=== PATIENT | male | born 1965 | race Caucasian/White ===

== ENCOUNTER 2016-08-18 05:29 | Day surgery (SDC) | payer MEDICAID ==
[~2016-08-18] VITALS: Ht 175.3 cm; Wt 73.9 kg
[~2016-08-18 05:29] MED LIST: ADDERALL 10 MG10 MG PO; CLARITIN 10 MG10 MG PO; HYDROCODONE-APA1 TAB PO; IBUPROFEN800 MG PO; NORCO 7.5/325 T1 TA1 PO; PROVENTIL HFA6.7 GM INH
[2016-08-18 07:52] VITALS: BP 112/74; Ht 175.3 cm; Wt 73.9 kg
[2016-08-18] MEDS ORDERED: HYDROCODONE-APA1 TAB PO (10:09)
--- NOTE | 2016-08-18 14:34 | NUR ---
1100 IV DC WITH CATHER TIP INTACT
--- NOTE | 2016-08-22 14:52 | OP ---
PATIENT NAME: SUBHA RIOS MEDICAL RECORD: [id number] :63 LOCATION:[facility] ADMISSION DATE: SURGEON: MARY BRENNAN MD DATE OF OPERATION: 08/18/2016 PREOPERATIVE DIAGNOSIS: Medial meniscus tear of the right knee. POSTOPERATIVE DIAGNOSIS: Medial meniscus tear of the right knee. PROCEDURE: Arthroscopic partial medial meniscectomy. SURGEON: Mary Brennan MD ANESTHESIA: General. INTRAOPERATIVE COMPLICATIONS: None. 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 OPERATIVE SUMMARY IN DETAIL: After obtaining the appropriate preoperative orthopedic surgery consents as well as anesthetic consultation, evaluation and clearance, the patient was brought to the operating room and placed on the operating table in supine position. After adequate general laryngeal mask was administered, tourniquet was placed about the proximal aspect of the right lower extremity. Right lower extremity was then prepped and draped in a routine sterile fashion. The leg was elevated and exsanguinated, tourniquet inflated to 350 mmHg. Routine inferolateral portal was established followed by a superomedial portal and inferomedial portal. Diagnostic arthroscopy showed the patient had complex tear of the posterior horn of the medial meniscus. A combination of arthroscopic ami as well as a meniscotome was utilized to debride the posterior horn of the medial meniscus back to stable meniscal elements. Having completed this, the lateral side of the patellofemoral joint were in excellent condition. Knee was insufflated with 30 cc of 0.25% Marcaine with epinephrine and 40 mg of Depo-Medrol. Arthroscopy portals were closed in routine interrupted fashion using 4-0 Prolene. Sterile dressings were applied. The patient was awakened and taken to the recovery room in stable condition. All final needle and sponge counts were correct. TRANSINT:[id number] Voice Confirmation ID: [id number] DOCUMENT ID: [id number] MARY BRENNAN MD at 1452 CC: [id number] DICTATION DATE: 08/18/16 1011 ENVELOPE FOLD OPERATOR: 08/18/16 1039 DEP [facility] 08/18/16 [place] [id number] [place], [place] [id number]
== END 2016-08-18 11:40 | disposition home or self-care (01) ==
LOC: D.OPS 05:29 → D.PAN 08:30 → D.OPS 09:30 → D.PAN 10:15 → D.OPS 10:15
DX: S83.231A Complex tear of medial meniscus, current injury, right knee, initial encounter (principal)

== ENCOUNTER 2016-09-19 02:55 | Emergency (ER) | payer MEDICAID ==
[2016-08-18 07:52] VITALS: BMI 24.1
== END 2016-09-19 05:58 | disposition home or self-care (01) ==
LOC: D.ER 02:55
DX: H10.31 Unspecified acute conjunctivitis, right eye (principal); F17.200 Nicotine dependence, unspecified, uncomplicated

== ENCOUNTER 2016-11-04 00:44 | Emergency (ER) | payer MEDICAID ==
[2016-08-18 07:52] VITALS: BMI 24.1
== END 2016-11-04 01:20 | disposition home or self-care (01) ==
LOC: D.ER 00:44
DX: S05.02XA Injury of conjunctiva and corneal abrasion without foreign body, left eye, initial encounter (principal); X58.XXXA Exposure to other specified factors, initial encounter; Y93.89 Activity, other specified; Y92.019 Unspecified place in single-family (private) house as the place of occurrence of the external cause

== ENCOUNTER 2016-11-05 10:38 | Emergency (ER) | payer MEDICAID ==
[2016-08-18 07:52] VITALS: BMI 24.1
== END 2016-11-05 15:44 | disposition home or self-care (01) ==
LOC: D.ER 10:38
DX: S05.01XA Injury of conjunctiva and corneal abrasion without foreign body, right eye, initial encounter (principal); X58.XXXA Exposure to other specified factors, initial encounter; Y93.89 Activity, other specified; Y92.89 Other specified places as the place of occurrence of the external cause; F17.200 Nicotine dependence, unspecified, uncomplicated

== ENCOUNTER 2016-11-27 17:56 | Emergency (ER) | payer MEDICAID ==
[2016-08-18 07:52] VITALS: BMI 24.1
== END 2016-11-27 19:50 | disposition home or self-care (01) ==
LOC: D.ER 17:56
DX: R07.89 Other chest pain (principal); S20.211A Contusion of right front wall of thorax, initial encounter; W22.8XXA Striking against or struck by other objects, initial encounter; Y93.89 Activity, other specified; Y92.019 Unspecified place in single-family (private) house as the place of occurrence of the external cause

== ENCOUNTER 2017-08-23 19:03 | Emergency (ER) | payer MEDICAID ==
[2016-08-18 07:52] VITALS: BMI 24.1
== END 2017-08-24 01:12 | disposition home or self-care (01) ==
LOC: D.ER 19:03
DX: S42.401A Unspecified fracture of lower end of right humerus, initial encounter for closed fracture (principal); W22.8XXA Striking against or struck by other objects, initial encounter; Y93.89 Activity, other specified; Y92.89 Other specified places as the place of occurrence of the external cause; M25.421 Effusion, right elbow; F17.200 Nicotine dependence, unspecified, uncomplicated

== ENCOUNTER 2018-05-03 21:05 | Emergency (ER) | payer MEDICAID ==
[~2018-05-03] VITALS: Ht 175.3 cm; Wt 68.2 kg
[2018-05-03 21:09] VITALS: Ht 175.3 cm; Wt 68.2 kg
[2018-05-03] MEDS ORDERED: CLEOCIN HCL300 MG PO (23:14)
[2018-05-03 23:17] VITALS: BP 127/77
== END 2018-05-03 23:17 | disposition home or self-care (01) ==
LOC: D.ER 21:05
DX: L03.115 Cellulitis of right lower limb (principal); F17.200 Nicotine dependence, unspecified, uncomplicated

== ENCOUNTER 2018-08-26 00:22 | Emergency (ER) | payer MEDICAID ==
[~2018-08-26] VITALS: Ht 175.3 cm; Wt 74.5 kg
[~2018-08-26 00:22] MED LIST changes: +CLEOCIN HCL300 MG PO
[2018-08-26 00:28] VITALS: Ht 175.3 cm; Wt 74.5 kg
[2018-08-26] MEDS ORDERED: CYCLOBENZAPRINE10 MG PO (01:41)
[2018-08-26 01:51] LABS: BASOPHILS 0.2 % (0-2); EOSINOPHILS 1.9 % (0-7); HEMATOCRIT 40.7 % (42.0-54.0); IMMATURE GRANULOCYTES 0.1 % (0-5); LYMPHOCYTES 42.8 % (15-50); MCH 34.5 pg (26.0-34.0); MCHC 34.4 g/dL (31.0-37.0); MCV 100.2 fL (80.0-100.0); MEAN PLATELET VOLUME 9.4 fL (7.4-10.4); MONOCYTES 6.8 % (2-11); NEUTROPHILS 48.2 % (40-80); RBC 4.06 10x6/uL (4.20-6.10); WBC 8.2 10x3/uL (4.8-10.8)
[2018-08-26 02:16] LABS: PLATELET COUNT 240 10x3/uL (130-400)
[2018-08-26 02:23] LABS: APPEARANCE CLEAR (CLEAR); BILIRUBIN NEGATIVE (NEGATIVE); COLOR YELLOW (YELLOW); GLUCOSE NEGATIVE (NEGATIVE); KETONE NEGATIVE (NEGATIVE); NITRITE NEGATIVE (NEGATIVE); PROTEIN NEGATIVE (NEGATIVE); UROBILINOGEN NORMAL (NORMAL)
[2018-08-26 02:32] LABS: UDS - AMPHET POSITIVE QUAL (NEGATIVE); UDS - BARB NEGATIVE QUAL (NEGATIVE); UDS - BENZO NEGATIVE QUAL (NEGATIVE); UDS - COCAINE NEGATIVE QUAL (NEGATIVE); UDS - OPIATE POSITIVE QUAL (NEGATIVE); UDS - PCP NEGATIVE QUAL (NEGATIVE); UDS - THC NEGATIVE QUAL (NEGATIVE)
[2018-08-26 02:33] LABS: ALBUMIN 3.6 g/dL (3.4-5.0); ALKALINE PHOSPHATASE 52 U/L (46-116); ALT (SGPT) 57 U/L (10-68); BILIRUBIN - TOTAL 0.27 mg/dL (0.2-1.3); CALC OSMOLALITY 287 mosm/kg (275-300); CALCIUM 8.8 mg/dL (8.5-10.1); CARBON DIOXIDE 29.5 mmol/L (21.0-32.0); CHLORIDE - SERUM 107 mmol/L (98-107); CREATININE - SERUM 0.9 mg/dL (0.6-1.3); GLUCOSE 89 mg/dL (74-106); POTASSIUM - SERUM 3.5 mmol/L (3.5-5.1); PROTEIN - SERUM 7.1 g/dL (6.4-8.2); SODIUM 147 mmol/L (136-145); UREA NITROGEN 4 mg/dL (7-18); eGFR NON AFRICAN AMERICAN > 90 mL/min (90-120)
[2018-08-26 02:40] LABS: CREATINE KINASE 463 UL (21-232); LIPASE 192 U/L (73-393); TROPONIN-I < 0.017 ng/mL (0.000-0.060)
[2018-08-26 02:48] LABS: CKMB 4.2 U/L (0.0-3.6)
[2018-08-26 03:08] VITALS: BP 125/95
== END 2018-08-26 03:08 | disposition home or self-care (01) ==
LOC: D.ER 00:22
PROVIDERS: Family Medicine
DX: S16.1XXA Strain of muscle, fascia and tendon at neck level, initial encounter (principal); V49.9XXA Car occupant (driver) (passenger) injured in unspecified traffic accident, initial encounter; Y93.89 Activity, other specified; Y92.410 Unspecified street and highway as the place of occurrence of the external cause; S09.90XA Unspecified injury of head, initial encounter

== ENCOUNTER 2018-08-29 23:26 | Emergency (ER) | payer MEDICAID ==
[~2018-08-29] VITALS: Ht 175.3 cm; Wt 74.5 kg
[~2018-08-29 23:26] MED LIST changes: +CYCLOBENZAPRINE10 MG PO
[2018-08-29 23:35] VITALS: Ht 175.3 cm; Wt 74.5 kg
[2018-08-30 02:22] VITALS: BP 148/87
== END 2018-08-30 02:23 | disposition home or self-care (01) ==
LOC: D.ER 23:26
DX: F07.81 Postconcussional syndrome (principal); S80.01XA Contusion of right knee, initial encounter; W19.XXXA Unspecified fall, initial encounter; Y93.89 Activity, other specified; Y92.89 Other specified places as the place of occurrence of the external cause

== ENCOUNTER → 2018-09-19 15:01 | Outpatient (CLI) | payer MEDICAID ==
[2018-08-29 23:35] VITALS: BMI 24.2
== END | disposition home or self-care (01) ==
LOC: D.MRI 15:01
DX: M25.561 Pain in right knee (principal)

== ENCOUNTER 2019-02-05 21:26 | Emergency (ER) | payer MEDICAID ==
[~2019-02-05] VITALS: Ht 175.3 cm; Wt 68.2 kg
[2019-02-05 21:30] VITALS: Ht 175.3 cm; Wt 68.2 kg
[2019-02-05] MEDS ORDERED: ERYTHROMYCIN OPT1 GM RIGHT EYE (23:24)
[2019-02-06] MEDS ORDERED: ACETAMINOPHEN500 M1 PO (00:02)
[2019-02-06] MEDS ORDERED: KEFLEX500 MG PO (00:02)
[2019-02-06] MEDS ORDERED: IBUPROFEN800 MG PO (00:02)
[2019-02-06 00:09] VITALS: BP 132/88
== END 2019-02-06 00:10 | disposition home or self-care (01) ==
LOC: D.ER 21:26
DX: S05.01XA Injury of conjunctiva and corneal abrasion without foreign body, right eye, initial encounter (principal); X58.XXXA Exposure to other specified factors, initial encounter